=== PATIENT | male | born 1985 | race African-American/Black ===

== ENCOUNTER 2016-10-01 06:46 | Emergency (ER) | payer SELFPAY ==
[~2016-10-01] VITALS: Ht 180.3 cm; Wt 63.5 kg
[2016-10-01] MEDS ORDERED: Azithromycin 250mg tab ORAL ONE (07:15)
--- NOTE | 2016-10-01 07:18 | Emergency Room Report ---
History of Present Illness General Chief Complaint: Male Urogenital Problems Source: Patient Present Illness HPI 31YOM with clear penile discharge for 4 days. Denies dysuria, polyuria, abd pain, nausea/vomiting, fever/chills. Partner tx for chlamydia yesterday. States he had chlamydia before, feels similar. States partner tested negative for "everything else." Allergies: Coded Allergies: No Known Allergies (Unverified , 10/01/16) Patient History Past Medical History: none Past Surgical History: none Pertinent Family History: none Social History: Denies: alcohol use, drug use, smoking Immunizations: UTD Reviewed Nursing Documentation: PMH: Agreed, PSxH: Agreed Nursing Documentation-PMH Past Medical History: No Stated History Review of Systems All Other Systems: negative except mentioned in HPI Physical Exam Vital Signs Date Time Temp Pulse Resp B/P Pulse Ox O2 Delivery O2 Flow Rate FiO2 10/01/16 07:04 97.9 77 16 125/85 99 Room Air Sp02 EP Interpretation: reviewed, normal General Appearance: normal inspection, well appearing, no apparent distress, alert, GCS 15, non-toxic Head: normocephalic, atraumatic Eyes: bilateral eye EOMI, bilateral eye PERRL ENT: normal ENT inspection, hearing grossly normal, normal voice Neck: normal inspection, full range of motion, supple, no bony tend Respiratory: normal inspection, lungs clear, normal breath sounds, no respiratory distress, no retraction, no wheezing Cardiovascular #1: regular rate, rhythm, no edema Gastrointestinal: normal inspection, normal bowel sounds, non tender, soft, no guarding, no hernia Genitourinary: no CVA tenderness Musculoskeletal: normal inspection, back normal, normal range of motion, Edd' s Sign negative Neurologic: normal inspection, alert, oriented x3, responsive, narcotics and/or vice detective III-XII nml as tested, motor strength/tone normal Psychiatric: normal inspection, judgement/insight normal, mood/affect normal Skin: normal inspection, normal color, no rash Medical Decision Making Diagnostic Impression: Primary Impression: Penile discharge ER Course Patient tx empirically for G&C given symptoms and recent exposure to partner tx for C VSS Afebrile Not septic appearing Advised on condom usage, safe sex practices Advised STD clinic for testing as needed Last Vital Signs Date Time Temp Pulse Resp B/P Pulse Ox O2 Delivery O2 Flow Rate FiO2 10/01/16 07:04 97.9 77 16 125/85 99 Room Air Status: improved Disposition: HOME, SELF-CARE RANDY BONNER M.D. October 01, 2016 07:18
[2016-10-01 07:25] VITALS: BP 125/85
[2016-10-01] MEDS ORDERED: Lidocaine 1% MPF 10mg/ml 5ml ONE (07:27)
[2016-10-01 07:40] VITALS: BP 125/85
== END 2016-10-01 07:40 | disposition home or self-care (01) ==
LOC: EMR 07:31
DX: R36.9 Urethral discharge, unspecified (principal)
CPT/HCPCS: 96372; 99283; J0696